=== PATIENT | female | born 1980 | race Caucasian/White ===

== ENCOUNTER 2017-08-03 10:09 | Emergency (ER) | payer OTHER ==
[~2017-08-03] VITALS: Ht 162.6 cm; Wt 81.7 kg
[2017-08-03] MEDS ORDERED: BIRTH CONTROL PILL (10:23)
[2017-08-03] MEDS ORDERED: BUTALB-APAP-CA1 EACH PO (12:10)
[2017-08-03] MEDS ORDERED: ZOFRAN ODT4 MG PO (12:10)
[2017-08-03 12:34] VITALS: BP 149/88
== END 2017-08-03 12:34 | disposition home or self-care (01) ==
LOC: M.ERS 10:09
DX: R51 Headache (principal); R11.0 Nausea; H57.8 Other specified disorders of eye and adnexa

== ENCOUNTER 2020-05-29 11:41 | Emergency (ER) | payer OTHER ==
[~2020-05-29] VITALS: Ht 162.6 cm; Wt 90.7 kg
[~2020-05-29 11:41] MED LIST: BIRTH CONTROL PILL; BUTALB-APAP-CA1 EACH PO; ZOFRAN ODT4 MG PO
[2020-05-29 11:49] VITALS: BP 199/91
[2020-05-29] MEDS ORDERED: BACTRIM 400-801 EACH PO (11:54)
[2020-05-29] MEDS ORDERED: PROZAC10 M1 PO (11:54)
[2020-05-29] MEDS ORDERED: LIPITOR10 MG PO (11:54)
[2020-05-29] MEDS ORDERED: NORCO 5-325 TA1 EAC2 PO (12:09)
[2020-05-29] MEDS ORDERED: CENTANY30 GM TOP (12:10)
== END 2020-05-29 12:18 | disposition home or self-care (01) ==
LOC: M.ERS 11:41
DX: R10.31 Right lower quadrant pain (principal); Z48.01 Encounter for change or removal of surgical wound dressing; E11.9 Type 2 diabetes mellitus without complications; E78.5 Hyperlipidemia, unspecified